=== PATIENT | female | born 1980 | race Caucasian/White ===

== ENCOUNTER 2018-11-19 14:12 | Emergency (ER) | payer OTHER ==
[~2018-11-19] VITALS: Ht 165.1 cm; Wt 48.5 kg
[~2018-11-19 14:12] MED LIST: ANTIDEPRESSANT; ANTIVERT25 MG PO; CARISOPRODOL 3350 MG PO; CIPRO500 MG PO; CLONAZEPAM; DARVOCET-N 1001 EACH PO; DESYREL300 MG; FLAGYL500 MG PO; FLEXERIL PO; IBUPROFEN 800800 M1 PO; LEXAPRO20 MG PO; NEURONTIN600 MG; NORCO 5-325 TA1 EACH PO; NORFLEX100 MG PO; PAXIL10 MG; PENICILLIN VK250 MG PO; PERCOCET 7.5-31 EACH PO; PERIDEX15 ML MM; PRILOSEC 20 MG20 MG PO; SEROQUEL 50 MG50 M1 NG; SEROQUEL400 MG PO; TRAMADOL 50 MG50 MG PO; TRILEPTAL600 MG PO; ULTRAM 50MG TAB50 MG PO; ZOFRAN ODT4 MG PO
[2018-11-19] MEDS ORDERED: FLEXERIL PO (16:15)
[2018-11-19 16:28] VITALS: BP 128/80
== END 2018-11-19 16:30 | disposition home or self-care (01) ==
LOC: M.ERS 14:12
DX: S80.11XA Contusion of right lower leg, initial encounter (principal); M54.5 Low back pain; M54.6 Pain in thoracic spine; F32.9 Major depressive disorder, single episode, unspecified; F17.210 Nicotine dependence, cigarettes, uncomplicated; Z98.890 Other specified postprocedural states; Z88.6 Allergy status to analgesic agent; Y08.89XA Assault by other specified means, initial encounter; Y93.89 Activity, other specified; Y92.89 Other specified places as the place of occurrence of the external cause; Y99.8 Other external cause status